=== PATIENT | female | born 2000 | race African-American/Black ===

== ENCOUNTER 2019-07-24 10:13 | Emergency (ER) | payer MEDICAID ==
[~2019-07-24] VITALS: Ht 175.3 cm; Wt 61.2 kg
[2019-07-24 10:22] VITALS: BP 106/64
[2019-07-24] MEDS ORDERED: cefTRIAXone SOD 1,000 MG VL IM ONE (12:45)
== END 2019-07-24 13:12 | disposition home or self-care (01) ==
LOC: ER 10:13
DX: J03.90 Acute tonsillitis, unspecified (principal); H66.91 Otitis media, unspecified, right ear; Z88.1 Allergy status to other antibiotic agents
CPT/HCPCS: 96372; 99283; J0696

== ENCOUNTER 2025-09-21 02:28 | Emergency (ER) | payer BC, MEDICAID ==
[~2025-09-21] VITALS: Ht 177.8 cm; Wt 59.8 kg
[2025-09-21 02:59] VITALS: BP 113/73; PULSE 90; RESP 18; TEMP 99.3; O2SAT 96
--- NOTE | 2025-09-21 03:03 | ED.PDOC ---
History of Present Illness HPI Comments 25 year old female presents to ER with complaints of flu-like symptoms x 2 days. Patient reports that she has been been experiencing mild cough, congestion, sore throat, intermittent shortness of breath, nausea and intermittent frontal headache x 2 days. She rates her current pain a 4/10 and notes she did take Tylenol for her symptoms with some relief. Patient presents to ER ambulatory on arrival, with steady gait, in no distress with vitals stable and notes she has been around her brother who has also been experiencing similar symptoms. 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 Family History Family History: Unknown Social History Smoker: Non-Smoker Alcohol: Denies ETOH Use Drugs: Denies Drug Use Lives In: Home Constitutional: No Symptoms Reported EENTM: See HPI Respiratory: See HPI Cardiovascular: No Symptoms Reported Gastrointestinal: See HPI Genitourinary: No Symptoms Reported Neurological: See HPI Musculoskeletal: No Symptoms Reported Integumentary: No Symptoms Reported Allergic/Immunocompromised: others (Denies) Hematologic/Lymphatic: No Symptoms Reported Endocrine: No Symptoms Reported Psychiatric: No symptoms Reported Physical Exam General Appearance: No Apparent Distress HEENT: PERRL/EOMI, Pharyngeal Erythema (Mild tonsillar swelling/erythema noted bilaterally without exudates. 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 Was a procedure done?: No Sedation Sedation?: No Fever Differential Dx Differential Diagnosis: Pneumonia, Pulmonary Embolus, Respiratory Failure, Sepsis, Other (INFLUENZA) X-Ray, Labs, Meds, VS Vital Signs Date Time Temp Pulse Resp B/P (MAP) Pulse Ox O2 Delivery O2 Flow Rate FiO2 09/21/25 02:59 Room Air* 0 21 09/21/25 02:59 99.3 90 18 113/73 (86) 96 99.3 09/21/25 02:36 99.3 90 18 113/73 96 99.3 Lab Test 09/21/25 03:10 09/21/25 03:01 Range/Units Influenza Type A Antigen Negative Negative Influenza Type B Antigen Negative Negative SARS-CoV-2 Antigen (Rapid) Positive NEGATIVE Urine Color Colorless Yellow Urine Clarity Clear Clear Urine pH 6.5 5.0-9.0 Urine Specific [place] 1.011 1.001-1.035 Urine Protein Negative Negative Urine Ketones Negative Negative Urine Blood Negative Negative /uL Urine Nitrite Negative Negative Urine Bilirubin Negative Negative Urine Urobilinogen Normal Negative mg/dL Urine Leukocyte Esterase 1+ Negative /uL Urine RBC 2 0 - 4 /hpf Urine Microscopic WBC 12 H 0-5 /HPF Urine Squamous Epithelial Cells Few <5 /hpf Urine Bacteria None seen None Seen /hpf Urine Glucose Normal Normal mg/dL Swab results reviewed- Elvia + Urinalysis reviewed-urine leukocyte esterase 1+, urine blood negative, urine nitrites negative Patient well appearing, tolerating p.o. intake well, vitals stable and in no distress prior to discharge Diet education discussed Advised to follow up with PCP in 1-2 days Patient verbalized understanding and agreeable with current plan of care Advised to return to ER immediately if symptoms worsen Time of 1ST Reevaluation: 03:08 Reevaluation 1ST: N/A Patient Education/Counseling: Diagnosis, Treatment, Prognosis, Need For Follow Up Family Education/Counseling: No Family Present SEPSIS Sepsis Screen Date sepsis recognized/suspect: Sep 21, 2025 Time Sepsis recognized/suspect: 237 Recent Procedure: No On Antibiotic Therapy: No Respiratory Rate >20: No Heart Rate >90: No Temp<36 C (96.8 F) or >38.3 C: No SBP <90 or MAP <65 mmHG: No New Acute Mental Status Change: No Is the patient on CPAP, BIPAP,: No Physician Orders Urine Bacterial Culture (09/21/25 02:42) Vital Signs Date Time Temp Pulse Resp B/P (MAP) Pulse Ox O2 Delivery O2 Flow Rate FiO2 09/21/25 02:59 Room Air* 0 21 09/21/25 02:59 99.3 90 18 113/73 (86) 96 99.3 09/21/25 02:36 99.3 90 18 113/73 96 99.3 Departure 1 Departure Time of Disposition: 04:07 Impression: Primary Impression: Acute tonsillitis Qualified Codes: J03.90 - Acute tonsillitis, unspecified Additional Impressions: UTI (urinary tract infection) Qualified Codes: N30.00 - Acute cystitis without hematuria COVID-19 Disposition: 01 HOME / SELF CARE / HOMELESS Condition: Stable e-Prescriptions Cephalexin Monohydrate (Cephalexin) 500 Mg Cap 1 CAP PO BID for 7 Days, #14 CAP 0 Refills Prov: ABDI BRODERICK 09/21/25 Acetaminophen (Acetaminophen) 500 Mg Tab 500 MG PO Q4HPRN, #30 TAB 0 Refills Prov: ABDI BRODERICK 09/21/25 Discharged With: Self Critical Care Note Critical Care Time?: No Stability Stability form required: No Heart Score Heart Score: Heart Score Response (Comments) Value History N/A 0 EKG N/A 0 Age N/A 0 Risk Factors N/A 0 Troponin N/A 0 Total 0 ABDI BRODERICK Sep 21, 2025 03:03
[2025-09-21 03:52] LABS: Urine Protein, UAD Negative (Negative)
[2025-09-21] MEDS ORDERED: CEPH500C PO (04:08)
[2025-09-21] MEDS ORDERED: ACET500T58 PO (04:08)
[2025-09-21 04:27] LABS: COVID19 ANTIGEN SOFIA FIA POSITIVE (NEGATIVE)
== END 2025-09-21 04:35 | disposition home or self-care (01) ==
LOC: ER 02:28
DX: U07.1 COVID-19 (principal); N39.0 Urinary tract infection, site not specified; J03.90 Acute tonsillitis, unspecified
CPT/HCPCS: 36415; 81001; 87086; 87426; 87804

== ENCOUNTER 2025-09-27 16:13 | Emergency (ER) | payer BC, MEDICAID ==
[~2025-09-27] VITALS: Ht 175.3 cm; Wt 58.0 kg
[~2025-09-27 16:13] MED LIST: ACET500T58 PO; CEPH500C PO
--- NOTE | 2025-09-27 16:25 | ED.PDOC ---
History of Present Illness HPI Comments 25-year-old female BIBA with prior medical history of chronic UTIs and a chief complaint of a near syncopal episode. 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 When EMS arrived on scene the patient's heart rate went from 80-130 when she stood up as well answering blood pressure increased, blood sugar was 116 on scene and was given 500 mL of saline in route to the ER. Patient notes on only eating one breakfast sandwich all day, as well as had being treated for chronic UTI in having COVID last week. Patient has had diarrhea for the past week. Denies any other symptoms at this time. Denies chills, fever, N/V, SOB, CP. No other associated symptoms, modifiers, recent injuries or sick contacts present at this time. Time Seen by MD: 16:15 Primary Care Provider: UNKNOWN Reviewed Notes: Nurses Notes, Medications, Allergies Allergies: Coded Allergies: Amoxicillin (Verified Allergy, Mild, 07/24/19) Home Meds Active Scripts Nitrofurantoin (Macrodantin) 50 Mg Cap, 1 CAP PO BID, #14 CAP Prov:BLAIR CORRALES MD 09/27/25 Cephalexin Monohydrate (Cephalexin) 500 Mg Cap, 1 CAP PO BID for 7 Days, #14 CAP 0 Refills Prov:ABDI BRODERICK 09/21/25 Acetaminophen (Acetaminophen) 500 Mg Tab, 500 MG PO Q4HPRN, #30 TAB 0 Refills Prov:ABDI BRODERICK 09/21/25 Information Source: Patient Mode of Arrival: EMS Severity: Moderate Timing: Minutes Duration: Since onset, Minutes Prehospital treatment: None Past Medical History PAST MEDICAL HISTORY: UTI'S Surgical History: Denies all surgeries 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 Family History Family History: Reviewed,noncontributory to illness Family History (Other): Family history of epilepsy Social History Smoker: Non-Smoker Alcohol: Occasionally Drugs: Marijuana (Last use was three days ago) Lives In: Home Constitutional: denies: chills, diaphoresis, fatigue, fever, malaise, sweats, weakness, others EENTM: denies: blurred vision, double vision, ear bleeding, ear discharge, ear drainage, ear pain, ear ringing, eye pain, eye redness, hearing loss, mouth pain, mouth swelling, nasal discharge, nose bleeding, nose congestion, nose pain, photophobia, tearing, throat pain, throat swelling, voice changes, others Respiratory: denies: cough, hemoptysis, orthopnea, SOB at rest, shortness of breath, SOB with excertion, stridor, wheezing, others Cardiovascular: reports: lightheadedness; denies: chest pain, dizzy spells, diaphoresis, Dyspnea on exertion, edema, irregular heart beat, left arm pain, palpitations, PND, syncope, others Gastrointestinal: reports: diarrhea; denies: abdomen distended, abdominal pain, blood streaked bowels, constipated, dysphagia, difficulty swallowing, hematemesis, melena, nausea, poor appetite, poor fluid intake, rectal bleeding, rectal pain, vomiting, others Genitourinary: denies: abnormal vagina bleeding, burning, dyspareunia, dysuria, flank pain, frequency, hematuria, incontinence, pain, , vagina discharge, urgency, others Neurological: denies: dizziness, fainting, headache, left sided numbness, left sided weakness, numbness, paresthesia, pre-existing deficit, right sided numbness, right sided weakness, seizure, speech problems, tingling, tremors, weakness, others Musculoskeletal: denies: back pain, gout, joint pain, joint swelling, muscle pain, muscle stiffness, neck pain, others Integumetry: denies: bruises, change in color, change in hair/nails, dryness, laceration, lesions, lumps, rash, wounds, others Allergic/Immunocompromised: denies: Difficulty Healing, Frequent Infections, Hives, Itching, others Hematologic/Lymphatic: denies: anemia, blood clots, easy bleeding, easy bruising, swollen glands, others Endocrine: denies: excessive hunger, excessive sweating, excessive thirst, excessive urination, flushing, intolerance to cold, intolerance to heat, unexpla ined weight gain, unexplained weight loss, others Psychiatric: denies: anxiety, bipolar disorder, depression, hopeless, panic disorder, schizophrenia, sleepless, suicidal, others All Other Systems: Reviewed and Negative Physical Exam General Appearance: No Apparent Distress, Thin HEENT: Pale [place] (L), Pale Con[place]ae (R), Pharynx Normal, TMs Normal Neck: Full Range of Motion, Non-Tender, Normal, Normal Inspection Respiratory: Chest Non-Tender, Lungs Clear, No Accessory Muscle Use, No Respiratory Distress, Normal Breath Sounds Cardiovascular: No Edema, No JVD, No Murmur, No Gallop, Normal Peripheral Pulses, Regular Rate/Rhythm Breast Exam: Deferred Gastrointestinal: No Organomegaly, Non Tender, No Pulsatile Mass, Normal Bowel Sounds, Soft Genitalia: Deferred Pelvic: Deferred Rectal: Deferred Extremities: No calf tenderness, Normal capillary refill, Normal inspection, Normal range of motion, Non-tender, No pedal edema Musculoskeletal : Apperance: Normal Neurologic: Alert, 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 Was a procedure done?: No EKG EKG : Pulse Rate (adult): 64 [place]: Normal Cardiac Rhythm: NSR Block: None ST: Nonsp Differential Dx Considerations may include: ACS, NM, generalized weakness, dehydration X-Ray, Labs, Meds, VS Vital Signs Date Time Temp Pulse Resp B/P (MAP) Pulse Ox O2 Delivery O2 Flow Rate FiO2 09/27/25 17:20 95 16 99 Room Air 09/27/25 17:20 97.9 95 16 109/76 (87) 99 97.9 09/27/25 16:39 98.5 72 16 100/64 99 98.5 09/27/25 16:30 64 09/27/25 16:26 64 Lab Test 09/27/25 16:45 09/27/25 16:32 Range/Units Urine Color Yellow Yellow Urine Clarity Turbid H Clear Urine pH 6.5 5.0-9.0 Urine Specific [place] 1.026 1.001-1.035 Urine Protein Trace H Negative Urine Ketones Trace Negative Urine Blood Negative Negative /uL Urine Nitrite Negative Negative Urine Bilirubin Negative Negative Urine Urobilinogen Normal Negative mg/dL Urine Leukocyte Esterase 1+ Negative /uL Urine RBC 3 0 - 4 /hpf Urine Microscopic WBC 10 H 0-5 /HPF Urine Squamous Epithelial Cells Few <5 /hpf Urine Amorphous Crystals Few None Seen /hpf Urine Bacteria Few H None Seen /hpf Urine Mucus Few None Seen Urine Glucose Normal Normal mg/dL Urine Test Negative Negative White Blood Count 7.4 4.4-10.8 10^3/uL Red Blood Count 4.28 4.0-5.20 10^6/uL Hemoglobin 13.4 12.2-16.2 g/dL Hematocrit 39.4 36.0-46.0 % Mean Corpuscular Volume 92.1 80.0-100.0 fL Mean Corpuscular Hemoglobin 31.3 28.0-32.0 pg Mean Corpuscular Hemoglobin Concent 33.9 32.0-36.0 g/dL Red Cell Distribution Width 12.1 11.8-14.3 % Platelet Count 168 140-450 10^3/uL Mean Platelet Volume 10.0 6.9-10.8 fL Neutrophils (%) (Auto) 65.5 37.0-80.0 % Lymphocytes (%) (Auto) 28.5 10.0-50.0 % Monocytes (%) (Auto) 5.4 0.0-12.0 % Eosinophils (%) (Auto) 0.4 0.0-7.0 % Basophils (%) (Auto) 0.2 0.0-2.0 % Neutrophils # (Auto) 4.9 1.6-8.6 10 ^3/uL Lymphocytes # (Auto) 2.1 0.4-5.4 10 ^3/uL Monocytes # (Auto) 0.4 0-1.3 10 ^3/uL Eosinophils # (Auto) 0 0-0.8 10 ^3/uL Basophils # (Auto) 0 0-0.2 10 ^3/uL Nucleated Red Blood Cells 0.0 % Sodium Level 141 136-145 mmol/L Potassium Level 3.4 L 3.5-5.1 mmol/L Chloride Level 105 98-107 mmol/L Carbon Dioxide Level 27 20-31 mmol/L Anion Gap 9 5-15 Blood Urea Nitrogen 9 9-23 mg/dL Creatinine 0.79 0.550-1.02 mg/dL Glomerular Filtration Rate Calc 106 >90 mL/min BUN/Creatinine Ratio 11.4 10.0-20.0 Serum Glucose 94 74-106 mg/dL Calcium Level 9.0 8.7-10.4 mg/dL Current Medications Medications (Trade) Dose Ordered Sig/Umm Route Start Time Stop Time Status Last Admin Sodium Chloride 1,000 ml @ 1,000 mls/hr Q1H ONCE IV 09/27/25 16:30 09/27/25 17:29 DC 09/27/25 17:32 IV Hep-Lock was established The patient was given a 1 L bolus of normal saline The patient has a CBC and chemistry panel done which is within normal limits The urine test is positive for UTI The patient is now finished with her doses of Keflex so we placed the patient on Macrobid The patient will return to the emergency department's the condition worsens. Time of 1ST Reevaluation: 16:45 Reevaluation 1ST: Unchanged Patient Education/Counseling: Diagnosis, Treatment, Prognosis, Need For Follow Up Family Education/Counseling: No Family Present SEPSIS Sepsis Screen Physician Orders Heplock Iv (09/27/25 16:21) Electrocardigram (09/27/25 16:21) Electrocardigram (09/27/25 17:21) Electrocardigram (09/27/25 19:21) Vital Signs Date Time Temp Pulse Resp B/P (MAP) Pulse Ox O2 Delivery O2 Flow Rate FiO2 09/27/25 17:20 95 16 99 Room Air 09/27/25 17:20 97.9 95 16 109/76 (87) 99 97.9 09/27/25 16:39 98.5 72 16 100/64 99 98.5 09/27/25 16:30 64 09/27/25 16:26 64 Laboratory Tests Test 09/27/25 16:32 White Blood Count 7.4 10^3/uL (4.4-10.8) Medications Medications Dose Ordered Sig/Umm Route Start Time Stop Time Status Last Admin Dose Admin Sodium Chloride 1,000 ml @ 1,000 mls/hr Q1H ONCE IV 09/27/25 16:30 09/27/25 17:29 DC 09/27/25 17:32 Departure 1 Departure Time of Disposition: 17:41 Impression: Primary Impression: Episode of syncope Qualified Codes: R55 - Syncope and collapse Additional Impression: UTI (urinary tract infection) Qualified Codes: N30.00 - Acute cystitis without hematuria Disposition: 01 HOME / SELF CARE / HOMELESS Condition: Fair e-Prescriptions Nitrofurantoin (Macrodantin) 50 Mg Cap 1 CAP PO BID, #14 CAP Prov: BLAIR CORRALES MD 12/16/25 Discharged With: Self Critical Care Note Critical Care Time?: No Stability Stability form required: No Heart Score Heart Score: Heart Score Response (Comments) Value History N/A 0 EKG N/A 0 Age N/A 0 Risk Factors N/A 0 Troponin N/A 0 Total 0 I personally scribed for BLAIR CORRALES MD ([email or web address]) on 09/27/25 at 16:25. Electronically submitted by Clyde Vogt ([email or web address]). BLAIR CORRALES MD Sep 27, 2025 16:25
[2025-09-27 16:44] LABS: Hematocrit 39.4 % (36.0-46.0); Hemoglobin 13.4 g/dL (12.2-16.2); Mean Corpuscular Hemoglobin 31.3 pg (28.0-32.0); Mean Corpuscular Volume 92.1 fL (80.0-100.0); Nucleated Red Blood Cells % 0.0 %
[2025-09-27 16:51] LABS: Chloride 105 mmol/L (98-107); Sodium 141 mmol/L (136-145)
[2025-09-27 16:52] LABS: Anion Gap 9 (5-15); Carbon Dioxide 27 mmol/L (20-31)
[2025-09-27 16:53] LABS: Calcium 9.0 mg/dL (8.7-10.4)
[2025-09-27 16:56] LABS: Potassium 3.4 mmol/L (3.5-5.1)
[2025-09-27 16:57] LABS: BUN/Creatinine Ratio 11.4 (10.0-20.0); Glucose 94 mg/dL (74-106)
[2025-09-27 16:58] LABS: Urine Amorphous Crystal FEW /hpf (None Seen); Urine Protein, UAD TRACE (Negative)
[2025-09-27 16:59] LABS: Blood Urea Nitrogen 9 mg/dL (9-23)
[2025-09-27 17:20] VITALS: BP 109/76; PULSE 95; RESP 16; TEMP 97.9; O2SAT 99
[2025-09-27] MEDS ORDERED: CIPR-173 PO (17:31)
[2025-09-27] MEDS: SODIUM CHLORIDE 0.9% 1,000 ML IV ONE (17:32)
[2025-09-27] MEDS ORDERED: NITR50CA24 PO (17:35)
--- NOTE | 2025-09-28 14:23 | ECG ---
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
== END 2025-09-27 18:19 | disposition home or self-care (01) ==
LOC: EDBD 16:13 → EDUNIT# 16:13 → ER 16:13
DX: N39.0 Urinary tract infection, site not specified (principal); R55 Syncope and collapse; Z79.899 Other long term (current) drug therapy; Z88.0 Allergy status to penicillin
CPT/HCPCS: 36415; 80048; 81001; 81025; 82947; 85025; 93005; 96360; 99284; J7030